=== PATIENT | female | born 1950 | race Caucasian/White ===

== ENCOUNTER 2020-09-08 17:20 | Emergency (ER) | payer MEDICARE, OTHER, SELFPAY ==
--- NOTE | ~2020-09-08 | XR_ITS ---
EXAMINATION: XR shoulder LT min 2V DATE: 09/08/2020 18:34 INDICATION: Left shoulder pain. TECHNIQUE: 4 views of left shoulder were obtained. COMPARISON: None. FINDINGS: Bone alignment is normal. No fracture. There is mild osteoarthritis of glenohumeral joint a nd severe osteoarthritis of acromioclavicular joint. IMPRESSION: 1. Polyarticular osteoarthritis. Reviewed, dictated and finalized at location A.
--- NOTE | ~2020-09-08 | XR_ITS ---
EXAMINATION: XR chest 2V DATE: 09/08/2020 18:04 INDICATION: Left arm pain. TECHNIQUE: Frontal and lateral views of the chest were obtained. COMPARISON: Chest 2 views 09/03/2016 FINDINGS: The chest demonstrates clear lungs without pneumonia, pleural effusion, or pneumothorax. Th e heart size is normal. IMPRESSION: 1. No acute cardiopulmonary disease. Reviewed, dictated and finalized at location A.
[2020-09-08 17:30] VITALS: BP 161/91; PULSE 93; RESP 16; TEMP 36.1; O2SAT 99
--- NOTE | 2020-09-08 17:35 | ECG_ITS ---
Measurements Intervals [place] Rate: 87 P: 68 CO: 133 QRS: 9 QRSD: 95 T: 61 QT: 353 QTc: 425 Interpretive Statements SINUS RHYTHM NORMAL ECG Electronically Signed On 09-08-2020 20:34:02 CDT by Jori Morris D.O.
[2020-09-08 18:25] LABS: Basophils Percent Auto 0.7 % (0.2-1.2); Eosinophils Absolute Auto 0.1 K/mm3 (0-0.3); Eosinophils Percent Auto 2.5 % (0-4.4); Hematocrit 44.3 % (37.0-47.0); Hemoglobin 14.6 g/dL (12.0-15.0); Immature Granulocyte Absolute 0.01 K/mm3 (0.00-0.031); Immature Granulocyte Percent A 0.2 % (0-0.5); Lymphocytes Absolute Auto 1.98 K/mm3 (0.9-3.2); Lymphocytes Percent Auto 34.7 % (18.3-44.2); Mean Corpuscular Hemoglobin 33.6 pg (26-34); Mean Corpuscular Volume 101.8 fl (80-100); Mean Platelet Volume 9.2 fl (7.4-10.4); Monocytes Absolute Auto 0.5 K/mm3 (0.1-0.6); Monocytes Percent Auto 8.1 % (2.6-8.5); Neutrophils Absolute Auto 3.1 K/mm3 (1.3-6.7); Neutrophils Percent Auto 53.8 % (45.5-73.1); Platelet Count Result 254 k/mm3 (150-375); Red Blood Count 4.35 M/mm3 (4.2-5.4); Red Cell Distribution Width 12.7 % (11.5-14.5); White Blood Count 5.7 K/mm3 (4.5-10.0)
[2020-09-08 18:35] LABS: INR 0.9; Prothrombin Time 13.1 Seconds (11.1-14.7)
[2020-09-08 18:36] LABS: Partial Thromboplastin Time 25.2 SECONDS (22.3-36.8)
--- NOTE | 2020-09-08 18:40 | ED.UPPEXIN ---
HPI - Extremity Injury (Upper) General Chief Complaint: Extremity Injury, Upper <Charissa Garcia MD - Last Filed: 09/09/20 21:11> Stated Complaint: LEFT arm pain <Charissa Garcia MD - Last Filed: 09/09/20 21:11> Time Seen by Provider: 09/08/20 17:53 <Charissa Garcia MD - Last Filed: 09/09/20 21:11> Source: patient <Charissa Garcia MD - Last Filed: 09/09/20 21:11> Mode of arrival: ambulatory <Charissa Garcia MD - Last Filed: 09/09/20 21:11> Limitations: no limitations <Charissa Garcia MD - Last Filed: 09/09/20 21:11> History of Present Illness HPI narrative: This is a 70 year old female with history of hypertension who presents for evaluation of left arm pain. She states she noticed pain to left wrist last night but that resolved. Today around 4 pm she developed pain to her left shoulder. Her pain is worse with lifting her left arm. She also reports pain to her left forearm. She denies arm weakness or numbness. She has not taken anything for her pain. She denies chest pain, sob, nausea, dizziness, or diaphoresis. She wants to make sure that this is not a heart attack. <Charissa Garcia MD - Last Filed: 09/09/20 21:11> Related Data Allergies/Adverse Reactions: Allergies Allergy/AdvReac Type Severity Reaction Status Date / Time Penicillins Allergy Unknown Rash Unverified 09/08/20 18:48 hazelnut Allergy Swelling Verified 09/08/20 18:48 of Lip/Tongue/Throat TUSSEND Allergy Unknown Unknown Uncoded 09/08/20 18:48 <Charissa Garcia MD - Last Filed: 09/09/20 21:11> Review of Systems Review of Systems: All systems reviewed & are unremarkable except as noted in HPI and below <Charissa Garcia MD - Last Filed: 09/09/20 21:11> [facility] Past Medical History Medical History: Medical History (Updated 09/09/20 @ 00:01 by Germain Davies) Hypertension <Charissa Garcia MD - Last Filed: 09/09/20 21:11> Surgical History Surgical History: Surgical History (Updated 09/08/20 @ 18:43 by Charissa Garcia MD) Hx of tonsillectomy <Charissa Garcia MD - Last Filed: 09/09/20 21:11> Social History Social History: Social History (Updated 09/08/20 @ 18:43 by Charissa Garcia MD) Smoking status: Never smoker <Charissa Garcia MD - Last Filed: 09/09/20 21:11> Exam Const: General: no acute distress and alert <Charissa Garcia MD - Last Filed: 09/09/20 21:11> Orientation/consciousness: patient oriented x3 <Charissa Garcia MD - Last Filed: 09/09/20 21:11> Eyes: EOM: EOMs intact bilaterally <Charissa Garcia MD - Last Filed: 09/09/20 21:11> Neck: Neck: normal visual inspection <Charissa Garcia MD - Last Filed: 09/09/20 21:11> Chest: Chest palpation & inspection: normal inspection of the chest <Charissa Garcia MD - Last Filed: 09/09/20 21:11> Resp: Effort & Inspection: normal respiratory effort and no retractions <Charissa Garcia MD - Last Filed: 09/09/20 21:11> Auscultation: clear to auscultation bilaterally <Charissa Garcia MD - Last Filed: 09/09/20 21:11> Cardio: Rate: regular rate <Charissa Garcia MD - Last Filed: 09/09/20 21:11> Rhythm: regular rhythm <Charissa Garcia MD - Last Filed: 09/09/20 21:11> Heart sounds: no murmurs <Charissa Garcia MD - Last Filed: 09/09/20 21:11> GI: GI Palp: Yes Soft to palpation, No Tenderness to palpation present (GI) and No Guarding due to palpation present (GI) <Charissa Garcia MD - Last Filed: 09/09/20 21:11> Auscultation: normal bowel sounds <Charissa Garcia MD - Last Filed: 09/09/20 21:11> Skin: General skin exam: normal color <Charissa Garcia MD - Last Filed: 09/09/20 21:11> Rashes: no rashes <Charissa Garcia MD - Last Filed: 09/09/20 21:11> Neuro: General: patient oriented x3 and moves all extremities <Charissa Garcia MD - Last Filed: 09/09/20 21:11> Extrem: Other: strong bilateral radial pulses, able to palpate ulnar pulse as wel
[2020-09-08 18:46] LABS: Troponin I < 0.012 ng/mL (0.000-0.034)
[2020-09-08] MEDS: IBUPROFEN 400 MG TABLET 800 MG PO (18:46)
[2020-09-08 18:57] LABS: Anion Gap 7 mmol/L (8-16); Blood Urea Nitrogen 13 mg/dL (7-17); Calcium 9.3 mg/dL (8.4-10.2); Carbon Dioxide 28 mmol/L (22-30); Chloride 105 mmol/L (98-107); Estimated CRCL calculation 65 ml/min; Estimated Glomerular Filt Rate > 60; Glucose 116 mg/dL (65-105); Sodium 140 mmol/L (137-145)
[2020-09-08 19:28] VITALS: BP 188/85; PULSE 84; RESP 16; O2SAT 97
[2020-09-08 21:05] VITALS: BP 152/79; PULSE 76; RESP 18; O2SAT 98
[2020-09-08 21:57] LABS: Troponin I < 0.012 ng/mL (0.000-0.034)
[2020-09-08 23:12] VITALS: BP 157/79; PULSE 80; RESP 16; O2SAT 97
== END 2020-09-08 23:14 | disposition home or self-care (01) ==
PROVIDERS: Emergency Medicine; Emergency Provider Emergency Medicine; PCP Family Medicine
DX: M19.012 Primary osteoarthritis, left shoulder (principal); I10 Essential (primary) hypertension
CPT/HCPCS: 36415; 71046; 73030; 80048; 84484; 85025; 85610; 85730; 93005; 99284; A9270

== ENCOUNTER 2022-10-22 22:26 | Emergency (ER) | payer MEDICARE, SELFPAY ==
[2022-10-22 22:52] VITALS: BP 179/88; PULSE 82; RESP 18; TEMP 36.2; O2SAT 99
[2022-10-23] MEDS: predniSONE 20 MG TABLET 60 MG PO (00:20)
[2022-10-23] MEDS: FAMOTIDINE 20 MG TABLET PO (00:20)
--- NOTE | 2022-10-23 00:33 | ED.GENADULT ---
HPI - General Adult General Chief complaint: Skin/Abscess/Foreign Body Stated complaint: Insect bite, redness Time Seen by Provider: 10/22/22 23:31 Source: patient Mode of arrival: ambulatory Limitations: no limitations History of Present Illness HPI narrative: This is a 72-year-old female who presents to the ED with chief complaint of left arm swelling following a possible bite occurring this evening around 1800. 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 Patient feels that she may have been bitten or stung tonight. She was carrying some wood in the yard when she had a sharp pain to the left biceps area. She then started to have redness and itchiness to the area that has been spreading. Reports it is spreading throughout the entire left upper arm at this point. Denies any further lesions. Denies any shortness of breath or lip swelling or tongue swelling. States she took a couple of doses of Benadryl prior to arrival but does not have any relief with this. Related Data Allergies Allergy/AdvReac Type Severity Reaction Status Date / Time Penicillins Allergy Unknown Rash Verified 10/22/22 23:27 bee venom protein (honey bee) Allergy Hives Verified 10/22/22 23:27 [bees] hazelnut Allergy Swelling Verified 10/22/22 23:27 of Lip/Tongue/Throat sunflower seed Allergy Swelling Verified 10/22/22 23:27 of Lip/Tongue/Throat TUSSEND Allergy Unknown Unknown Uncoded 10/22/22 22:28 Review of Systems Review of Systems: CONSTITUTIONAL: Denies fever, chills, or sweats. EYES: Denies visual changes, redness, or discharge. ENT: Denies rhinorrhea, congestion, sore throat, or otalgia. CARDIOVASCULAR: Denies chest pain, palpitations, or edema. RESPIRATORY: Denies cough or dyspnea. GASTROINTESTINAL: Denies abdominal pain, nausea, vomiting, or diarrhea. GENITOURINARY: Denies dysuria or hematuria. SKIN: Denies rash or itching. MUSCULOSKELETAL: Denies back pain, joint pain, or myalgia. NEUROLOGIC: Denies headache, numbness, dizziness, or weakness. PSYCHIATRIC: Denies anxiety or depression. [facility] Past Medical History Medical History (Updated 10/23/22 @ 01:17 by Mark Voss PA-C) Hypertension Surgical History Surgical History (Updated 09/08/20 @ 18:43 by Charissa Garcia MD) Hx of tonsillectomy Social History Social History (Updated 09/08/20 @ 18:43 by Charissa Garcia MD) Smoking status: Never smoker Exam Narrative: GENERAL: Well-appearing, well-nourished, and in no acute distress. HEAD: Normocephalic, atraumatic. EYES: PERRLA and EOMI. ENT: Nares clear, no rhinorrhea or epistaxis. Mucous membranes moist. Oropharynx without tonsillar hypertrophy exudate or other lesions. NECK: Supple. No adenopathy or masses. CHEST: No respiratory distress. Clear to auscultation. No wheezes rales or rhonchi HEART: Regular rate and rhythm. No murmur heard. Normal peripheral pulses. ABDOMEN: Soft, nontender, nondistended, normal active bowel sounds. MSK: Normal range of motion. No edema. SKIN: Urticarial lesion noted to the entire left biceps extending medially and laterally around the arm. It is not all the way circumferential. The area is nearly 10 cm x 15 cm. Warm, dry, no rash. NEURO: Alert and oriented x3. No focal deficits. PSYCH: Normal mood and affect. Course Vital Signs Vital signs: Vital Signs Temperature 97.2 F L 10/22/22 22:52 Pulse Rate 82 10/22/22 22:52 Respiratory Rate 18 10/22/22 22:52 Blood Pressure 179/88 H 10/22/22 22:52 Pulse Oximetry 99 10/22/22 22:52 Oxygen Delivery Room Air 10/22/22 22:52 Temperature 97.2 F L 10/22/22 22:52 Pulse Rate 82 10/22/22 22:52 Respiratory Rate 18 10/22/22 22:52 Blood Pressure 179/88 H 10/22/22 22:52 Pulse Oximetry 99 10/22/22 22:52 Oxygen Delivery Room Air 10/22/22 22:52 Medical Decision Making [facility] Narrative Medical decision making narrative: This i
== END 2022-10-23 01:29 | disposition home or self-care (01) ==
PROVIDERS: Emergency Provider Physician Assistant
DX: L50.9 Urticaria, unspecified (principal); I10 Essential (primary) hypertension
CPT/HCPCS: 99283; A9270; J7512